=== PATIENT | female | born 1990 | race Hispanic/Latino ===

== ENCOUNTER 2023-11-17 20:09 | Emergency (ER) | payer SELFPAY | END 2023-11-17 21:32 | disposition home or self-care (01) | LOC: CSHERS 20:09 | DX: S60.221A Contusion of right hand, initial encounter (principal); S20.219A Contusion of unspecified front wall of thorax, initial encounter; V89.2XXA Person injured in unspecified motor-vehicle accident, traffic, initial encounter; E11.9 Type 2 diabetes mellitus without complications | CPT/HCPCS: 71045 ==

== ENCOUNTER 2024-01-06 01:05 | Emergency (ER) | payer SELFPAY ==
[2024-01-06] MEDS ORDERED: Acetaminophen 500 MG TAB ONE (01:44)
[2024-01-06 01:50] LABS: Bilirubin Neg (Negative); Blood, Urine 150 (Negative); Clarity Cloudy (Clear); Glucose, Urine (Dipstick) >=1000 mg/dL (Negative); Ketone, Urine 50 mg/dL (Negative); Leukocyte 500 (Negative); Nitrite Positive (Negative); Protein, Urine (Dipstick) 30 mg/dl (Neg-Trace); Specific Gravity, Urine 1.015 (1.005-1.030); Urobilinogen Normal mg/dL (Less than 2)
[2024-01-06 01:52] LABS: Pregnancy Test - Urine (BHCG) Negative (Negative); Pregu Control Background? CLEAR/WHITE (CLR/WHITE); Pregu Control Bar Appear? YES (CONTROL BAR); Specific Gravity 1.015 (1.002-1.036)
[2024-01-06 02:06] LABS: CAUTI Indications for Culture Pelvic or flank pain; WBC/HPF Greater Than 50 HPF (0-3)
[2024-01-06 02:07] LABS: Bacteria/HPF 2+ HPF (None Seen); Squamous Epithelial 0-3 HPF (0-3)
[2024-01-06 02:08] LABS: Urine Culture Reflex Yes Yes
== END 2024-01-06 02:57 | disposition home or self-care (01) ==
LOC: CSHERS 01:05
DX: N39.0 Urinary tract infection, site not specified (principal); E11.9 Type 2 diabetes mellitus without complications; Z55.6 Problems related to health literacy; Z79.84 Long term (current) use of oral hypoglycemic drugs; Z79.4 Long term (current) use of insulin
CPT/HCPCS: 81001; 81025; 87077; 87086; 87186; 96360